=== PATIENT | female | born 1985 | race Caucasian/White ===

== ENCOUNTER 2016-12-15 09:39 | Emergency (ER) | payer OTHER ==
[2016-12-15 09:44] VITALS: BP 155/79; PULSE 111; TEMP 98; BMI 39.0
--- NOTE | 2016-12-15 10:21 | PDOC ---
History of Present Illness - General Chief Complaint: Rash Stated Complaint: RASH Time Seen by Provider: 12/15/16 09:45 History Source: Patient Exam Limitations: No Limitations - History of Present Illness Initial Comments: 12/15/16 10:17 CHIEF COMPLAINT: Erythematous, pruritic area to the right anterior forearm. HISTORY OF PRESENT ILLNESS: Patient is a 31-year-old female, no significant medical history currently on no medication works at [employer] presents with erythema to anterior right forearm. Patient states she was sitting at her desk, wears a support for her elbow and all of a sudden started to have itching with erythema to anterior right forearm. Not circumferential. There is no pain. No decreased range of motion. Denies trauma, unknown if insect bite. There is no raised area, no visible boss or lesions. Timing/Duration: reports: just prior to arrival Severity: Yes: moderate Location: reports: extremities Respiratory Risk Factors: reports: no cause identified Associated Symptoms: reports: other (erythema right forearm. ) Past History - Past Medical History Allergies/Adverse Reactions: Allergies Allergy/AdvReac Type Severity Reaction Status Date / Time No Known Allergies Allergy Verified 12/15/16 09:44 Home Medications: Ambulatory Orders Noreth-Ethinyl Estradiol/Iron [Generess Fe Chewable Tablet] 1 mg PO DAILY Hydrocortisone 2.5% Lotion [Hytone 2.5% Lotion -] 1 applic TP BID #1 bottle 09/25 Anemia: No Asthma: No Cancer: No Cardiac Disorders: No CVA: No COPD: No CHF: No Dementia: No Diabetes: No GI Disorders: No Disorders: No HTN: No Hypercholesterolemia: No Liver Disease: No Seizures: No Thyroid Disease: No - Surgical History Abdominal Surgery: No Appendectomy: No Cardiac Surgery: No Cholecystectomy: No Lung Surgery: No Neurologic Surgery: No Orthopedic Surgery: No - Psycho/Social/Smoking Cessation Hx Suicidal Ideation: No Smoking History: Never smoked Information on smoking cessation initiated: No Hx Alcohol Use: Yes (occasional) Drug/Substance Use Hx: No Substance Use Type: None Hx Substance Use Treatment: No Review of Systems - Review of Systems Constitutional: No: Symptoms Reported HEENTM: No: Symptoms Reported Respiratory: No: Symptoms reported, Shortness of Breath, Wheezing Cardiac (ROS): No: Symptoms Reported Musculoskeletal: No: Symptoms Reported Integumentary: Yes: Erythema. No: Rash Neurological: No: Symptoms reported Hematologic/Lymphatic: No: Symptoms Reported All Other Systems: Reviewed and Negative *Physical Exam - Vital Signs Last Vital Signs Temp Pulse Resp BP Pulse Ox 98 F 111 H 18 155/79 99 12/15/16 09:40 12/15/16 09:40 12/15/16 09:40 12/15/16 09:40 12/15/16 09:40 - Physical Exam General Appearance: Yes: Appropriately Dressed. No: Apparent Distress HEENT: negative: Pharyngeal Erythema, Tonsillar Exudate, Tonsillar Erythema, Nasal Congestion, Rhinorrhea, Sinus Tenderness, TM Bulging, TM Dull, TM Erythema Neck: positive: Trachea midline Respiratory/Chest: positive: Lungs Clear, Normal Breath Sounds. negative: Respiratory Distress, Accessory Muscle Use Cardiovascular: positive: Regular Rhythm, Regular Rate Lymphatic: negative: Adenopathy Extremity: positive: Normal Capillary Refill, Erythema. negative: Normal Inspection, Tender, Coldness, Cyanosis, Swelling, Inflammation Integumentary: positive: Dry, Warm, Erythema, Other (area measures 10 cm x 10 cm to right anterior forearm, not circumferential, there is no edema, area is erythematous with no raised lesions or wheals.). negative: Hives, Rash, Swelling, Ecchymosis, Bruising Neurologic: positive: Alert, Normal Mood/Affect, Normal Response, Motor Strength 5/5 Medical Decision Making - Medical Decision Making 12/15/16 10:29 A/P: Patient here for evaluation of erythematous area to right anterior forearm , most likely related to bug bite there is no clinical evidence of DVT. No edema , area was sudden onset with no pain area is pruritic. Ice placed to area which improved it. Area marked for evaluation, if any increased redness swelling or pain patient to return immediately to ER... Discharge patient home on hydrocortisone 2% I discussed the physical exam findings, ancillary test results and final diagnoses with the patient. I answered all of the patient's questions. The patient was satisfied with the care received and felt comfortable with the discharge plan and treatment plan. The patient will call to arrange follow-up and will return to the Emergency Department with any new, persistent or worsening symptoms. *DC/Admit/Observation/Transfer Diagnosis at time of Disposition: Erythema of forearm - Discharge Dispostion Disposition: HOME Condition at time of disposition: Good Admit: No - Prescriptions Prescriptions: Hydrocortisone 2.5% Lotion [Hytone 2.5% Lotion -] 1 applic TP BID #1 bottle - Referrals Referrals: Rashawn Tee [Non Staff, Medical] - - Patient Instructions Additional Instructions: Please keep cool packs to area If any increased redness, swelling, pain, or any other concerns return immediately to ER Apply cream as indicated - Post Discharge Activity Work/School Note: Back to Work
== END 2016-12-15 10:47 | disposition home or self-care (01) ==
LOC: JERFT 09:39
DX: L53.8 Other specified erythematous conditions (principal)
CPT/HCPCS: 99281-25

== ENCOUNTER 2019-05-15 11:43 | Emergency (ER) | payer OTHER ==
[2019-05-15 12:37] VITALS: BP 151/95; PULSE 101; TEMP 98.5; BMI 32.2
--- NOTE | 2019-05-15 13:49 | PDOC ---
History of Present Illness - General Chief Complaint: Wound Stated Complaint: CELILITIES Time Seen by Provider: 05/15/19 13:17 History Source: Patient Exam Limitations: No Limitations Past History - Travel Traveled outside of the country in the last 30 days: No Close contact w/someone who was outside of country & ill: No - Past Medical History Allergies/Adverse Reactions: Allergies Allergy/AdvReac Type Severity Reaction Status Date / Time No Known Allergies Allergy Verified 05/15/19 12:32 Home Medications: Ambulatory Orders Noreth-Ethinyl Estradiol/Iron [Generess Fe Chewable Tablet] 1 mg PO DAILY 12/31/11 Hydrocortisone 2.5% Lotion [Hytone 2.5% Lotion -] 1 applic TP BID #1 bottle 12/15/16 Amlodipine Besylate 1 tab PO DAILY 05/15/19 Cephalexin [Keflex Suspension] 500 mg PO BID #140 ml 05/15/19 Sulfamethoxazole/Trimethoprim [Bactrim Oral Suspension -] 40 mg PO BID #70 ml 05/15/19 Anemia: No Asthma: No Cancer: No Cardiac Disorders: No CVA: No COPD: No CHF: No Dementia: No Diabetes: No GI Disorders: No Disorders: No HTN: No Hypercholesterolemia: No Liver Disease: No Seizures: No Thyroid Disease: No - Surgical History Abdominal Surgery: No Appendectomy: No Cardiac Surgery: No Cholecystectomy: No Lung Surgery: No Neurologic Surgery: No Orthopedic Surgery: No - Psycho Social/Smoking Cessation Hx Smoking History: Never smoked Hx Alcohol Use: Yes (occasional) Drug/Substance Use Hx: No Substance Use Type: None Hx Substance Use Treatment: No Review of Systems - Review of Systems Able to Perform ROS?: Yes Comments:: 05/15/19 13:44 CONSTITUTIONAL: Absent: fever, chills, diaphoresis, generalized weakness, malaise, loss of appetite HEENT: Absent: rhinorrhea, nasal congestion, throat pain, throat swelling, difficulty swallowing, mouth swelling, ear pain, eye pain, visual Changes CARDIOVASCULAR: Absent: chest pain, loss of consciousness, palpitations, irregular heart rate, peripheral edema RESPIRATORY: Absent: cough, shortness of breath, dyspnea with exertion, orthopnea, wheezing, stridor, hemoptysis GASTROINTESTINAL: Absent: abdominal pain, abdominal distension, nausea, vomiting, diarrhea, constipation, melena, hematochezia GENITOURINARY: Absent: dysuria, frequency, urgency, hesitancy, hematuria, flank pain, genital pain MUSCULOSKELETAL: Absent: myalgia, arthralgia, joint swelling SKIN: Present: Rash absent: rash, itching, pallor NEUROLOGIC: Absent: headache, focal weakness or paresthesias, dizziness, unsteady gait, seizure, mental status changes, bladder or bowel incontinence PSYCHIATRIC: Absent: anxiety, depression, suicidal or homicidal ideation, hallucinations. Is the patient limited [place] proficient: No *Physical Exam - Vital Signs Last Vital Signs Temp Pulse Resp BP Pulse Ox 98.5 F 101 H 18 151/95 98 05/15/19 12:35 05/15/19 12:35 05/15/19 12:35 05/15/19 12:35 05/15/19 12:35 - Physical Exam 05/15/19 13:44 GENERAL: Well developed, well nourished. Awake and alert. No acute distress. MUSCULOSKELETAL Normal range of motion at all joints. No bony deformities or tenderness. No CVA tenderness. EXTREMITIES: No cyanosis. No clubbing. No edema. No calf tenderness. SKIN: Cellulitis patch to the r right arm [id number] patch. Warm and dry. Normal capillary refill. No rashes. No jaundice. NEUROLOGICAL: Alert, awake, appropriate. Cranial nerves 2-12 intact. No deficits to light touch and temperature in face, upper extremities and lower extremities. No motor deficits in the in face, upper extremities and lower extremities. Normoreflexic in the upper and lower extremities. Normal speech. Toes are down-going bilaterally. Gait is normal without ataxia. PSYCHIATRIC: Cooperative. Good eye contact. Appropriate mood and affect. Medical Decision Making - Medical Decision Making 05/15/19 13:45 The patient is a 33-year-old female with past medical history of tennis elbow who presents to the ER with a rash over her right elbow and arm. She states she put BenGay on her arm last night and massaged in. She noticed in the middle the night her arm was itchy so she started to scratch it. When she woke up this morning she noticed a red patch on her arm that was also painful to touch. She states the arm is warm to the touch. She is able to bend her elbow. Denies numbness and tingling weakness the affected extremity. A/P: Cellulitis On exam a 10 cm x 4 cm patch to the right arm. Area was marked with surgical marker. The cellulitis does not engage over the joint. Patient is able to bend the elbow, low suspicion for joint infection at this time. We will start patient on Bactrim and Keflex. Patient works in a healthcare facility. Patient instructed to follow-up with her primary care doctor. Strict return precautions given should cellulitis extend past the marker or if she develops fevers. Discharge home I discussed the physical exam findings, ancillary test results and final diagnoses with the patient. I answered all of the patient's questions. The patient was satisfied with the care received and felt comfortable with the discharge plan and treatment plan. The Patient agrees to follow up with the primary care physician/specialist within 24-72 hours. Return precautions were given. Discharge - Discharge Information Problems reviewed: Yes Clinical Impression/Diagnosis: Cellulitis Qualifiers: Site of cellulitis: extremity Site of cellulitis of extremity: upper extremity Laterality: right Qualified Code(s): L03.113 - Cellulitis of right upper limb Condition: Stable Disposition: HOME - Admission No - Follow up/Referral Referrals: Jamie Fernandes MD [Primary Care Provider] - - Patient Discharge Instructions Patient Printed Discharge Instructions: DI for Cellulitis -- Adult Additional Instructions: You have cellulitis. This is a skin infection. The area was marked today. Please take the Bactrim and Keflex twice a day for one week. Please take all the antibiotics even if you feel better. You may use warm water soaks to the area. Please do this approximately 4-5 times a day. Please avoid shaving the skin around the area of redness. You may take Tylenol or Motrin as needed for pain. Please follow up with your primary care doctor in 1 week. Return to the emergency department if you have worsening redness, fevers, increasing pain, if you cannot move your elbow, or have any changes in your symptoms. - Post Discharge Activity Work/Back to School Note: Back to Work
== END 2019-05-15 13:55 | disposition home or self-care (01) ==
LOC: JERFT 11:43
DX: L03.113 Cellulitis of right upper limb (principal)
CPT/HCPCS: 99281-25